=== PATIENT | female | born 1945 | race Caucasian/White ===

== ENCOUNTER 2022-04-19 11:14 | Outpatient (CLI) | payer OTHER, SELFPAY ==
--- NOTE | ~2022-04-19 | XR_ITS ---
XR foot RT standing 2V DATE: 04/19/2022 12:17 INDICATION: Osteoarthritis TECHNIQUE: Weightbearing AP and lateral views COMPARISON: None FINDINGS: Pes planus. Mild plantar calcaneal enthesopathy without erosive change or periostitis. There is narrowing at the first metatarsophalangeal joint consistent with osteoarthritis. No fracture, dislocation, periosteal reaction or bone destruction. IMPRESSION: Pes planus Mild osteoarthrosis at first metatarsophalangeal joint Mild plantar calcaneal enthesopathy Reviewed, dictated and finalized at location B.
--- NOTE | ~2022-04-19 | XR_ITS ---
XR foot LT standing 2V DATE: 04/19/2022 12:17 INDICATION: Osteoarthritis TECHNIQUE: Weightbearing AP and lateral views COMPARISON: None FINDINGS: Slight plantar calcaneal enthesopathy. Mild area of the first metatarsophalangeal joint consistent with osteoarthritis. No fracture, dislocation, periosteal reaction or bone destruction. IMPRESSION: Mild first metatarsophalangeal joint osteoarthritis Slight plantar calcaneal enthesopathy Reviewed, dictated and finalized at location B.
[2022-04-19 12:01] LABS: Basophils Absolute Auto 0.1 K/mm3 (0.0-0.1); Basophils Percent Auto 0.6 % (0.2-1.2); Eosinophils Absolute Auto 0.1 K/mm3 (0-0.3); Eosinophils Percent Auto 1.3 % (0-4.4); Hematocrit 44.5 % (37.0-47.0); Hemoglobin 13.3 g/dL (12.0-15.0); Immature Granulocyte Absolute 0.03 K/mm3 (0.00-0.031); Immature Granulocyte Percent A 0.4 % (0-0.5); Lymphocytes Absolute Auto 1.65 K/mm3 (0.9-3.2); Lymphocytes Percent Auto 19.8 % (18.3-44.2); Mean Corpuscular HGB Conc 29.9 g/dl (32-36); Mean Corpuscular Hemoglobin 26.6 pg (26-34); Mean Platelet Volume 10.1 fl (7.4-10.4); Monocytes Absolute Auto 0.7 K/mm3 (0.1-0.6); Neutrophils Absolute Auto 5.8 K/mm3 (1.3-6.7); Neutrophils Percent Auto 69.9 % (45.5-73.1); Platelet Count Result 269 k/mm3 (150-375); Red Cell Distribution Width 16.5 % (11.5-14.5); White Blood Count 8.4 K/mm3 (4.5-10.0)
[2022-04-19 12:10] LABS: Appearance Urine Clear (Clear); Bilirubin Urine Negative (Negative); Blood Urine Negative (Negative); Color Urine Yellow (Yellow); Glucose Urine UA Negative (Negative); Ketones Urine Trace mg/dL (Negative); Leukocyte Esterase Ur Trace LEU/UL (Negative); Nitrate Urine Negative (Negative); Protein Urine Negative (Negative); Specific Grav Ur 1.025 (1.001-1.035); Urobilinogen Urine 0.2 mg/dL (<2.0); pH Urine 5.5 (5.0-9.0)
[2022-04-19 12:19] LABS: Alanine Aminotransferase 19 U/L (6-35); Albumin Level 4.4 g/dL (3.5-5.1); Alkaline Phosphatase 106 U/L (38-126); Anion Gap 9 mmol/L (8-16); Aspartate Amino Transferase 27 U/L (14-36); Bilirubin,Total 0.3 mg/dL (0.2-1.3); Blood Urea Nitrogen 21 mg/dL (7-17); CRP < 0.5 mg/dL (<1.0); Calcium 8.9 mg/dL (8.4-10.2); Carbon Dioxide 28 mmol/L (22-30); Chloride 99 mmol/L (98-107); Estimated Glomerular Filt Rate > 60; Glucose 89 mg/dL (65-110); Potassium 3.9 mmol/L (3.4-5.0); Sodium 136 mmol/L (137-145)
[2022-04-19 12:20] LABS: Bacteria Urine Trace /hpf; Mucus Urine Rare /lpf; RBC Urine 0-2 /hpf (0-2); Squamous Epithelial Cell Urine Occasional /hpf (Few)
[2022-04-19 12:22] LABS: Complement C3 115 mg/dL (88-165)
[2022-04-19 12:23] LABS: Add Urine Microscopic? YES
[2022-04-19 12:38] LABS: Platelet Estimate Adequate (Adequate)
[2022-04-19 12:39] LABS: Hypochromasia 1+ (NORMAL)
[2022-04-19 12:53] LABS: Erythrocyte Sedimentation Rate 4 mm/hr (0-20)
[2022-04-19 13:13] LABS: Rheumatoid Factor < 8.6 IU/ML (<12)
[2022-04-19 13:14] LABS: Hepatitis B Surface Antigen Negative (Negative)
[2022-04-19 13:31] LABS: Hepatitis B Surface Anti Res Negative; Hepatitis C Virus Antibody Negative (Negative)
[2022-04-21 19:12] LABS: NIL 0.01 IU/mL; Quantiferon TB Plus, 1T NEGATIVE (NEGATIVE)
[2022-04-22 05:04] LABS: Angiotensin Converting Enzyme 6 U/L (9-67)
[2022-04-22 05:47] LABS: Lupus dRVVT 1:1 Mix Interpreta Not Indicated; Lupus dRVVT Screen 37 sec (<=45); PTT-LA Screen 39 sec (<=40)
[2022-04-22 12:05] LABS: Anti Cyclic Citrullinated Pept <16 Units (<20)
[2022-04-23 12:05] LABS: Protein S Antigen, Free 102 % normal (50-147)
[2022-04-24 11:24] LABS: Protein C Antigen 101 % (70-140)
[2022-04-24 19:14] LABS: SM Antibody <1.0; SM/RNP Antibody <1.0; SS-A <1.0; SS-B <1.0
[2022-04-25 23:27] LABS: Factor V (Leiden) Mutation NEGATIVE
[2022-04-26 19:44] LABS: Anti Cardio Antibody IgM <2.0 MPL-U/mL (<20.0); Anti Cardiolipin Antibody IgA <2.0 APL-U/mL (<20.0); Anti Cardiolipin Antibody IgG <2.0 GPL-U/mL (<20.0)
== END 2022-04-19 11:15 | disposition home or self-care (01) ==
PROVIDERS: Visit Provider Internal Medicine
DX: Z71.89 Other specified counseling (principal); Z51.81 Encounter for therapeutic drug level monitoring; Z79.899 Other long term (current) drug therapy; Z98.890 Other specified postprocedural states; I75.023 Atheroembolism of bilateral lower extremities; M19.072 Primary osteoarthritis, left ankle and foot; M19.071 Primary osteoarthritis, right ankle and foot; M77.32 Calcaneal spur, left foot; M77.31 Calcaneal spur, right foot; M21.41 Flat foot [pes planus] (acquired), right foot
CPT/HCPCS: 36415; 73620; 80053; 81001; 81241; 82164; 85025; 85302; 85303; 85306; 85613; 85652; 85730; 86038; 86140; 86146; 86147; 86160; 86200; 86225; 86235; 86430; 86480; 86706; 86803; 87086; 87088; 87340